=== PATIENT | male | born 1950 ===

== ENCOUNTER 2019-10-09 13:01 | Outpatient (CLI) | payer MEDICARE, MEDICAID ==
[2019-10-10] MEDS ORDERED: PREZCOBIX 8001 EACH PO (07:52)
[2019-10-10] MEDS ORDERED: ASPIRIN EC81 MG ORAL (07:52)
[2019-10-10] MEDS ORDERED: BACTRIM DS TAB1 EAC1 ORAL (07:52)
[2019-10-10] MEDS ORDERED: VITAMIN B COMP1 EAC2 ORAL (07:52)
[2019-10-10] MEDS ORDERED: TIVICAY50 MG ORAL (07:52)
[2019-10-10] MEDS ORDERED: EPIVIR150 MG ORAL (07:52)
[2019-10-10] MEDS ORDERED: ANDROGEL2.5 GM TD (07:52)
[2019-10-10] MEDS ORDERED: NAPROXEN250 MG ORAL (07:52)
[2019-10-10] MEDS ORDERED: FLONASE ALLERG9.9 ML NS (07:52)
[2019-10-10] MEDS ORDERED: PROAIR HFA8.5 GM INH (07:52)
[2019-10-10] MEDS ORDERED: CALCIUM + D3 E1 EACH PO (07:52)
--- NOTE | 2019-10-10 16:15 | Consultation ---
DATE OF CONSULTATION: 10/09/2019 CONSULTING PHYSICIAN: Freddy Cortes M.D. CHIEF COMPLAINT: Stool OB positive. HISTORY OF PRESENT ILLNESS: This is a 69-year-old male with past medical history of HIV, hypercholesteremia, and hypertension, was referred to us for evaluation of stool OB positive. According to him, he thinks that he is bleeding from the hemorrhoids. He has mentioned that he had a colonoscopy done at [facility], maybe 5 years ago. I reviewed the records at [facility], I could not find him. Denies any abdominal pain. No nausea. No vomiting. No dysphagia. No odynophagia. PAST MEDICAL HISTORY: 1. HIV. 2. Hypercholesterolemia. 3. Hypertension. 4. Atrial fibrillation. PAST SURGICAL HISTORY: Hernia repair in 1987 and eye surgery. MEDICATIONS: Please see medication reconciliation list. FAMILY HISTORY: Brother had prostate cancer. Father had prostate cancer and colon cancer. Mother with breast cancer, coronary artery disease, and CHF. SOCIAL HISTORY: Drinks alcohol socially and smokes cigarettes daily for last 50 years. ALLERGIES: No known allergies. REVIEW OF SYSTEMS: A 10-point review of systems was performed and pertinent positives in HPI. PHYSICAL EXAMINATION: GENERAL: A well-developed male, in no acute distress. HEENT: Normocephalic and atraumatic. Sclerae anicteric. NECK: Supple. No evidence of obvious lymphadenopathy. CARDIOVASCULAR: Regular rate and rhythm. Plus S1 and S2. LUNGS: Decreased breath sounds bilaterally based on the supine exam. ABDOMEN: Soft, nontender. No rebound. No guarding. No peritoneal sign. EXTREMITIES: No cyanosis, no clubbing, no edema. ASSESSMENT AND PLAN: This is a 69-year-old male with stool OB positive, need for endoscopy and colonoscopy. Again, the patient stated that he had a colonoscopy done 5 years ago and I did not see any records at [facility] mentioning that he had a colonoscopy. I offered him to have an endoscopy and colonoscopy at this time, he is hesitant. He wants to repeat the stool OB again and decide based on that. So, I gave him the prescription for stool for FIT. I recommended him to come back after the stool results is back to decide. Meanwhile, I recommend the patient to get his records of last colonoscopy and bring it for me so I can review it. Freddy Cortes M.D. DR: JESUS JOB#: [id number] CC:
== END 2019-10-09 15:01 | disposition home or self-care (01) ==
LOC: PAN 13:01
DX: E78.00 Pure hypercholesterolemia, unspecified (principal); I10 Essential (primary) hypertension; B20 Human immunodeficiency virus [HIV] disease; Z80.42 Family history of malignant neoplasm of prostate
CPT/HCPCS: G0463